=== PATIENT | female | born 1965 | race Caucasian/White ===

== ENCOUNTER 2017-06-28 07:30 | Inpatient (IN) ==
[2017-06-23 16:22] LABS: Appearance,Urine CLEAR; Bilirubin,Urine NEG (NEG); Color,Urine YELLOW; Glucose,Urine (UA) NEGATIVE (NEG); Leukocyte Esterase,Urine NEG /uL (NEG); Protein,Urine NEG (NEG); Specific Gravity,Urine 1.015 (1.000-1.035); Urine Blood NEG mg/dL (<0.03); Urobilinogen,Urine NEG (NEG)
[2017-06-23 18:42] LABS: Basophils # (Auto) 0 K/mcL (0.0-0.3); Basophils % (Auto) 0.4 % (0.0-2.0); Eosinophils # (Auto) 0.2 K/mcL (0.0-0.7); Eosinophils % (Auto) 2.5 % (0.0-7.0); Granulocytes % (Auto) 69.7 % (38.0-78.0); Lymphocytes # (Auto) 1.6 K/mcL (1.5-4.8); Lymphocytes % (Auto) 22.2 % (15.5-49.0); Mean Cell Volume 100.1 fL (80.0-100.0); Mean Corpuscular HGB Conc 34.3 g/dL (31.0-36.0); Mean Corpuscular Hemoglobin 34.3 pg (26.0-34.0); Monocytes # (Auto) 0.4 K/mcL (0.1-0.9); Monocytes % (Auto) 5.2 % (1.0-12.0); Platelet Count 389 K/mcL (140-440); Red Cell Distribution Width 12.4 % (11.5-14.5)
[2017-06-23 19:03] LABS: Blood Urea Nitrogen 14 mg/dl (6-20)
[~2017-06-28 07:30] MED LIST: ACETAMINOPHEN 500 MG TABLET PO SCH; CLINDAMYCIN 900 MG in DEXTROSE 5% IN WATER 50 ML IV SCH; KETOROLAC 30 MG, ROPIVACAINE HCL/PF 49.5 ML, EPINEPHrine 0.5 MG, 0.9 % SODIUM CHLORIDE ... IJ SCH; PREGABALIN 75 MG CAPSULE PO SCH
[2017-06-28] MEDS ORDERED: DEXAMETHASONE 10 MG/ML VIAL IV ONE (10:55)
[2017-06-28] MEDS ORDERED: ONDANSETRON 4 MG/2 ML VIAL IV ONE (10:55)
[2017-06-28] MEDS ORDERED: TRANEXAMIC ACID 1,000 MG/10 ML VIAL IV ONE ×2 (10:55→12:11)
[2017-06-28] MEDS ORDERED: PROPOFOL 200 MG/20 ML VIAL IV ONE (10:55)
[2017-06-28] MEDS ORDERED: MIDAZOLAM 5 MG/5 ML VIAL IV ONE (10:55)
[2017-06-28] MEDS ORDERED: LIDOCAINE HCL/PF 100 MG/5 ML SYRINGE IV ONE (10:55)
[2017-06-28] MEDS ORDERED: GENTAMICIN SULFATE 800 MG/20 ML VIAL IR ONE (11:53)
[2017-06-28] MEDS ORDERED: ONDANSETRON 4 MG/2 ML VIAL IV PRN ×2 (11:57→12:11)
[2017-06-28] MEDS ORDERED: NALOXONE HCL 0.4 MG/ML VIAL IV PRN (11:57)
[2017-06-28] MEDS ORDERED: fentaNYL 100 MCG/2 ML VIAL IV PRN (11:57)
[2017-06-28] MEDS ORDERED: IPRATROPIUM/ALBUTEROL 3 ML AMPUL.NEB NEB PRN (11:57)
[2017-06-28] MEDS ORDERED: BENZOCAINE/MENTHOL 1 LOZENGE PO PRN ×2 (11:57→12:11)
[2017-06-28] MEDS ORDERED: diphenhydrAMINE 50 MG/ML VIAL IV PRN (11:57)
[2017-06-28] MEDS ORDERED: FLUMAZENIL 0.1 MG/ML ML IV PRN (11:57)
[2017-06-28] MEDS ORDERED: PROMETHAZINE 25 MG/ML VIAL IV PRN (11:57)
[2017-06-28] MEDS ORDERED: LACTATED RINGERS 250 ML IV PRN (11:57)
[2017-06-28] MEDS ORDERED: LACTATED RINGERS 1,000 ML IV SCH (12:00)
[2017-06-28] MEDS ORDERED: TEMAZEPAM 15 MG CAPSULE PO PRN (12:11)
[2017-06-28] MEDS ORDERED: FLEETS ADULT ENEMA PR PRN (12:11)
[2017-06-28] MEDS ORDERED: KETOROLAC 15 MG/ML VIAL IV PRN (12:11)
[2017-06-28] MEDS ORDERED: BISACODYL 10 MG SUPP.RECT PR PRN (12:11)
[2017-06-28] MEDS ORDERED: MAGNESIUM HYDROXIDE 30 ML ORAL.SUSP PO PRN (12:11)
[2017-06-28] MEDS ORDERED: POLYETHYLENE GLYCOL 3350 17 GM PACKET PO PRN (12:11)
[2017-06-28] MEDS ORDERED: ACETAMINOPHEN 325 MG TABLET PO PRN (12:11)
[2017-06-28] MEDS ORDERED: HYDROmorphone 2 MG/ML VIAL IV PRN (12:11)
--- NOTE | 2017-06-28 12:11 | Brief Operative Note ---
Date of procedure: 06/28/17 Pre-op diagnosis: right hip djd severe Post-op diagnosis: same Procedure: right total hip Grafts/Implants: Yes Anesthesia: GETA Surgeon: Jayy Barreto Hatch Supervisor: Tato Pedro Estimated blood loss (cc): 50 Specimens Removed/Pathology: none sent Condition: stable Disposition: PACU
[2017-06-28] MEDS ORDERED: ALBUTEROL SULFATE 1 PUFF INHALER INH PRN (12:14)
[2017-06-28] MEDS ORDERED: BUDESONIDE 1 PUFF INHALER INH PRN (12:14)
[2017-06-28] MEDS ORDERED: ceFAZolin 1 GM VIAL IV SCH (12:15)
[2017-06-28] MEDS: MEPERIDINE 25 MG/ML SYRINGE IV PRN ×2 (12:30→12:36)
--- NOTE | 2017-06-28 12:49 | Operative Note ---
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 PROCEDURE: Right total hip arthroplasty. SURGEON: Jayy Barreto MD FASHION DIRECTOR [employer] SALES: Tato Pedro PA-C ANESTHESIA: General LMA anesthesia. COMPLICATIONS: None. IMPLANTS: A size 4 stem with a neutral neck length 36 mm head, 50 mm cup with a 36 mm screw. BLOOD LOSS: About 50 mL DESCRIPTION OF PROCEDURE: The patient was brought to the operating room and put to sleep with general LMA anesthesia. Once asleep, patient was turned into a left lateral position with Shay positioner. We placed a U-drape and then sterile drapes over the hip after being sterilely prepped and draped. A timeout was performed confirming this was the operative site all by x-ray, consent form and initials. Once this was done, we then placed Ioban over the skin and made a superior posterior approach after confirming tranexamic acid and antibiotics had been given. We dissected down to the fascial layer and then incised linearly in line with the muscles. This was exposed and I placed a Charnley retractor. I then released the capsule with the piriformis obturator internus superiorly. This was dislocated superior posteriorly and then we made our neck cut at 32 mm below the center rotation of the femoral head. It was noted there was quite a bit of arthritis in the superior dome of the femoral head. This was cut at 32 mm. We then subluxed the hip anteriorly with a retractor and then we removed the labrum. The labrum was very large and torn. This was excised. This was obviously a source of pain as well as the arthritis. We then reamed up to the size of 49, implanted a 50 mm cup, placed a 35 mm screw with good compression and then placed a liner. This was for a 36 mm head. It was placed in about 25 degrees of anteversion and about 40 degrees of inclination. We irrigated again and then prepared the femur and this was broached up to the size 4 stem. We took x-rays which showed the right leg to be slightly longer than the left by 1 to 2 mm. We then broached a little bit further and placed the final implant. Then we placed a neutral neck length ceramic head and this was reduced. Hip was stable up to 90 degrees, internal rotation with adduction. We irrigated thoroughly and then repaired the capsule with #2 Ethibond stitch. The fascial layer was closed with #1 Stratafix and the deep fascial layer was closed with a #1 Stratafix with 2-0 Vicryl and adhesive closure. The patient tolerated this well. There was no complication. RBH:dori Job ID: [id number] Doc ID: [id number] Jayy Barreto MD
[2017-06-28] MEDS ORDERED: METHOCARBAMOL 750 MG TABLET PO PRN (12:51)
--- NOTE | 2017-06-28 12:56 | XRay Report ---
CLINICAL INFORMATION: Postop total hip prostheses COMPARISON: Preoperative film from 10/01/2014 FINDINGS: ] Right total hip prostheses is in near-anatomic alignment with slight lateral canting of the acetabular prostheses. Left total hip prostheses remains anatomically aligned without evidence for infection. No osseous abnormality. Gas and soft tissue swelling - seen as expected IMPRESSION: Right total hip prostheses - as described Interpreted and Authenticated by: Donovan Cesar 06/28/17
[2017-06-28] MEDS: 0.45 % SODIUM CHLORIDE 1,000 ML IV SCH (14:28)
[2017-06-28] MEDS: 0.9 % SODIUM CHLORIDE 10 ML SYRINGE IV SCH ×2 (14:29→23:13)
[2017-06-28] MEDS: HYDROcodone/APAP 10/325MG TABLET PO PRN ×3 (17:42→23:12)
[2017-06-28] MEDS: CLINDAMYCIN 900 MG in DEXTROSE 5% IN WATER 50 ML IV SCH (19:11)
[2017-06-28] MEDS ORDERED: MONTELUKAST 10 MG TABLET PO SCH (21:00)
[2017-06-28] MEDS ORDERED: SENNOSIDES 1 TABLET PO SCH (21:00)
[2017-06-28] MEDS ORDERED: DOCUSATE SODIUM 100 MG CAPSULE PO SCH (21:00)
[2017-06-28] MEDS: ASPIRIN 325 MG ENTERIC COATED TABLET PO SCH (21:55)
[2017-06-29] MEDS: 0.45 % SODIUM CHLORIDE 1,000 ML IV SCH ×2 (00:59→11:18)
[2017-06-29] MEDS: CLINDAMYCIN 900 MG in DEXTROSE 5% IN WATER 50 ML IV SCH (02:36)
[2017-06-29] MEDS: 0.9 % SODIUM CHLORIDE 10 ML SYRINGE IV SCH (05:10)
[2017-06-29] MEDS: HYDROcodone/APAP 10/325MG TABLET PO PRN (06:09)
--- NOTE | 2017-06-29 07:40 | Orthopedic Progress Note ---
Subjective Patient information: Note initiated : 06/29/17 at 7:39 am Service Date, if different from initiated Date: [] Patient: Anjana Mallory 51 y/o F admitted on 06/28/17 for Right Total Hip Arthroplasty *!lime trimmer!*. Chief Complaint: [Pt is stable this morning on post operative day 1 without any significant concerns or complaints. Patients vital signs have remained stable. Patients dressing is dry and is grossly instact from a neurovascular and motor standpoint. Patients 10 point ROS is otherwise negative. ] Objective Vital signs: Vital Signs Temp Pulse Resp BP BP Pulse Ox 06/29/17 07:11 97.8 F 16 113/79 98 06/29/17 05:10 94 06/29/17 04:00 98.3 F 79 12 115/77 97 06/29/17 01:22 94 06/28/17 23:25 98.2 F 88 12 105/68 95 06/28/17 22:00 96 06/28/17 20:00 98.6 F 84 12 124/62 96 06/28/17 18:00 98 06/28/17 16:00 98 06/28/17 15:26 129/87 96 06/28/17 14:57 122/68 95 06/28/17 14:27 131/81 95 06/28/17 14:12 109/74 97 06/28/17 14:11 98 06/28/17 13:56 112/74 94 06/28/17 13:41 116/75 98 06/28/17 13:26 115/77 97 06/28/17 13:04 98.9 F 70 15 111/69 100 06/28/17 12:55 98.9 F 70 12 125/86 117/65 97 06/28/17 12:50 68 16 99/56 97 06/28/17 12:45 98.9 F 85 21 118/56 97 06/28/17 12:40 78 19 98/56 100 06/28/17 12:35 77 19 152/124 100 06/28/17 12:30 77 19 120/58 100 06/28/17 12:25 97.1 F 88 15 100/51 100 06/28/17 09:00 98.6 F 16 125/86 96 Intake and Output 06/28/17 06/29/17 06/29/17 21:59 05:59 13:59 Intake Total 1975 3906 / 3906 Output Total 2550 / 2550 1350 / 1350 450 / 450 Balance -574 / -574 2556 / 2556 -450 / -450 Intake: IV 56 / 56 1056 / 1056 Sodium Chloride 0.45% 1,000 ml 1000 / 1000 @ 100 mls/hr IV .Q10H [facility]OLDO Rx#: [id number] Cleocin 900 mg In Dextrose 5% 56 / 56 in Water 50 ml @ 100 mls/hr IV Q8H AROLDO Rx#:[id number] Oral 1920 / 1920 2850 / 2850 Output: Void Amount 2550 / 2550 1350 / 1350 450 / 450 Other: Meal Dinner Percent of Meal Consumed 75% # Voids 1 1 Weight 209 lb Intake & Output: Intake & Output 06/28/17 06/29/17 06/29/17 21:59 05:59 13:59 Intake Total 1975 3906 / 3906 Output Total 2550 / 2550 1350 / 1350 450 / 450 Balance -574 / -574 2556 / 2556 -450 / -450 Weight 209 lb Intake: IV 56 / 56 1056 / 1056 Sodium Chloride 0.45% 1,000 ml 1000 / 1000 @ 100 mls/hr IV .Q10H AROLDO Rx#: [id number] Cleocin 900 mg In Dextrose 5% 56 / 56 in Water 50 ml @ 100 mls/hr IV Q8H AROLDO Rx#:[id number] Oral 1920 / 1920 2850 / 2850 Output: Void Amount 2550 / 2550 1350 / 1350 450 / 450 Other: Meal Dinner Percent of Meal Consumed 75% # Voids 1 1 Incision: Yes healing Incision clean and dry: Yes Dressing: Yes clean Weight bearing status: full Neurological exam IM: Yes motor sensory intact, Yes neurovascular intact Extremities exam IM: Yes Foot pink and warm, Yes neurovascular intact - Labs CBC & BMP: 06/29/17 05:00 06/23/17 14:59 Labs: Orthopedic Labs 06/23/17 14:59 PT 12.2 INR 0.9 APTT 35 06/29/17 06/23/17 05:00 14:59 Hgb 14.7 Hct 36.4 43.0 Assessment and Plan (1) H/O total hip arthroplasty The patient has been educated regarding dressing care, Physical Therapy recommendations, home exercises, restrictions, and follow up appointments. The patient has had all necessary DME prescribed. The patient has remained relatively stable during their hospital course. I consulted with Dr Barreto regarding her O2 concerns as well as if he wants a Hospitalist Consult for her. Leave Dermabond patch intact until followup Status: Acute
--- NOTE | 2017-06-29 07:44 | Discharge Summary ---
Ortho Discharge - [facility] - Patient Instructions Diet: Regular Diet Activity: activity as tolerated, weight bearing as tolerated Total Hip Protocol: Follow activity instructions as provided by Physical Therapy. Dressing Care: May shower in 2 days - Problem Maintenance (1) H/O total hip arthroplasty Status: Acute - Follow Up Plan Disposition: Home, Self-Care Prognosis: Good Rehab Potential: Good I certify that the patient requires SNF services: No Overall status at discharge: patient is progressing back to baseline - Orders For Discharge Prescriptions: Aspirin [Ecotrin] 325 mg PO BID #60 tab.ec Docusate Sodium [Colace] 100 mg PO BID #60 cap HYDROcodone/APAP 10/325MG [[place] 10-325Mg] 1 - 2 tab PO Q4HP PRN #30 tab PRN Reason: Pain Level 3-6 Additional Discharge Orders: Physical Therapy at Discharge - [facility] Location: Determined By Patient Toilet Riser Discharge Order Location: Determined By Patient Walker Location: Determined By Patient
[2017-06-29] MEDS ORDERED: metFORMIN 500 MG TAB.XL.24H PO SCH (08:00)
[2017-06-29] MEDS ORDERED: POTASSIUM CHLORIDE 10 MEQ TABLET PO SCH (08:00)
[2017-06-29] MEDS ORDERED: FUROSEMIDE 20 MG TABLET PO SCH (09:00)
[2017-06-29] MEDS ORDERED: CALCIUM W/VIT D3 500 MG TABLET PO SCH (09:00)
[2017-06-29] MEDS ORDERED: Red Yeast Rice 600 mg Tab PO SCH (09:00)
[2017-06-29] MEDS ORDERED: DOXYCYCLINE HYCLATE 50 MG CAPSULE PO SCH (09:00)
[2017-06-29] MEDS ORDERED: ASCORBIC ACID 500 MG TABLET PO SCH (09:00)
[2017-06-29] MEDS ORDERED: MAGNESIUM OXIDE 400 MG TABLET PO SCH (09:00)
[2017-06-29] MEDS: ASPIRIN 325 MG ENTERIC COATED TABLET PO SCH (09:07)
== END 2017-06-29 10:30 | disposition home or self-care (01) | DRG 470 ==
LOC: MEDSUR 08:12
PROVIDERS: ADMIT Orthopaedic Surgery; ATTEND Orthopaedic Surgery